=== PATIENT | female | born 1935 | race Caucasian/White ===

== ENCOUNTER 2017-02-21 14:47 | Emergency (ER) | payer MEDICARE, BC ==
[2017-02-21 15:26] LABS: Urine Bilirubin Negative (NEGATIVE); Urine Blood 25 /ul (NEGATIVE); Urine Ketone Negative (NEGATIVE); Urine Nitrite Negative (NEGATIVE); Urine Protein 15 mg/dL (NEGATIVE); Urine Specific Gravity >=1.030 SP.GR. (1.005-1.010); Urine Urobilinogen Normal (NORMAL)
[2017-02-21 15:30] LABS: Urine Appearance Clear; Urine Bacteria TRACE; Urine Color Yellow; Urine WBC None Seen /hpf (0-5)
--- NOTE | 2017-02-21 15:36 | ERNOTE ---
ER Female HPI Date of Service: 02/21/17 Stated Complaint: UTI Presenting Symptoms: pelvic pain, dysuria Time Seen by Provider: 02/21/17 15:23 Source: patient Exam Limitations: no limitations Immunizations: IMMUNIZATION HX Immunizations Up to Date Yes History of Influenza Vaccine Yes Hx Pneumococcal Vaccination Yes Allergies/Adverse Reactions: Allergies No Known Allergies Allergy (Verified 02/21/17 15:02) Home Medications: HOME MEDICATIONS Methimazole [Tapazole] 5 mg PO Q8H 09/16/14 [Last Taken 09/23/14] Meloxicam [Mobic] 15 mg PO DAILY 12/03/15 [Last Taken Unknown] Acetaminophen [Tylenol] 650 mg PO TID 02/21/17 [Last Taken Unknown] Cholecalciferol [Vitamin D] 1,000 unit PO DAILY 02/21/17 [Last Taken Unknown] Nitrofurantoin Macrocrystal [Nitrofurantoin] 100 mg PO BID #10 capsule 02/21/17 [Last Taken Unknown] - History of Present Illness Narrative: 81-year-old female presents to the emergency room for lower pelvic pain. Patient states that she has had frequency and dysuria for the last day and a half. Patient does have a history of kidney stones but she states this does not feel like a kidney stone. She states that she feels like she has a UTI. Date (Duration): 02/21/17 Timing: Present: getting worse Quality: Present: fullness Onset Location: Present: suprapubic Radiation: Present: none Activities at Onset: Present: none Prior Abdominal Problems: Present: none Sexual [place] History: Present: not active Modifying Factors - (Improves): Present: lying down Modifying Factors - (Worsens): Present: urinating Associated Symptoms: Present: dysuria, urinary frequency, polyuria. Absent: fever/chills, nausea, vomiting, low back pain, mass, nocturia Review of Systems - Review of Systems Constitutional: Present: no symptoms reported EYE: Present: no symptoms reported ENT: Present: no symptoms reported Respiratory: Present: no symptoms reported Cardiology: Present: no symptoms reported Gastrointestinal/Abdominal: Present: See HPI, constipation Genitourinary: Present: See HPI, frequency, pain, dysuria Musculoskeletal: Present: no symptoms reported Skin: Present: no symptoms reported Neurological: Present: no symptoms reported Endocrine: Present: no symptoms reported Hematologic/Lymphatic: Present: no symptoms reported Psych: Present: no symptoms reported All Other Systems: All systems neg except as marked - Patient's Past Medical History Patient History - Medical: Kidney stone Patient History - Cardiac/Respiratory: No pertinent hx Patient History - Cancer: No Hx of Cancer Patient History - Surgical Procedures: Cataracts, Hysterectomy, Total Knee Replacement, Tubal Ligation, Other Patient History - Other: None LMP (females 10-50): Menopausal - Social History Living Situations: home Abuse History: No History of abuse Psych History: No pertinent hx Smoking Status: Never smoker Alcohol Use: occasionally Drug Use: none - Immunizations Immunizations Up to Date: Yes Hx Pneumococcal Vaccination: Yes History of Influenza Vaccine: Yes Physical Exam - Physical Exam Narrative: patient denies back pain and no CVA tenderness General Appearance: Present: wd/wn, alert, no apparent distress Head Exam: Present: normal inspection, no evidence of injury Eye Exam: Normal inspection: bilateral Ears, Nose, Throat: Present: normal ENT inspection, normal pharynx Neck: Present: normal inspection, nontender, other Respiratory: Present: no respiratory distress, normal breath sounds, no accessory muscle use, chest nontender, lungs clear Cardiovascular/Chest: Present: regular rate, rhythm, no murmur, normal peripheral pulses Gastrointestinal/Abdominal: Present: normal bowel sounds, nontender, nondistended, soft, no organomegaly. Absent: tenderness, abnormal bowel sounds , distended, guarding, rebound Back Exam: Present: normal inspection, normal range of motion, no CVA tenderness , no vertebral tenderness Extremity Exam: Present: normal inspection, non-tender, normal range of motion, no edema Neurological Exam: Present: alert, oriented, normal mood/affect, no motor/ sensory deficits Skin Exam: Present: normal color, warm/dry Lymphatic Exam: Present: other - patient has a swollen salavary gland on the left side of her face. she states that she is seeing an ENT for it and has had it for a while. ED Progress - Results and Orders Patient's Lab Results:: I have reviewed the patient's lab results. Results and Orders: rbc in urine - Vital Signs Patient's Vital Signs:: I have reviewed the patient's vital signs. Vital Signs: Vital Signs 02/21/17 14:50 Temperature 36.6 C Pulse Rate 90 Respiratory 16 Rate Blood Pressure 173/71 O2 Sat by Pulse 96 Oximetry - Progress/Reassessment Chief Complaint: Urinary Tract Problems Progress:: Improved Plan - Plan Plan: patients sx correlate with the UTI. Patient will be treated as such. Departure Clinical Impression: UTI (urinary tract infection) Qualifiers: Urinary tract infection type: site unspecified Hematuria presence: with hematuria Qualified Code(s): N39.0 - Urinary tract infection, site not specified ; R31.9 - Hematuria, unspecified - Departure Disposition: Home self-care Condition: Stable Instructions: Urinary Incontinence, Urine Culture and Sensitivity Testing, Urinary Tract Infection, Adult, [id number] Additional Instructions: Continue previous home medications as directed. Follow up with her primary care provider the next 2-3 days if needed. return to the emergency room if she develops a fever or symptoms do not subside. She may take [id number] pain medication as needed for discomfort. Encourage fluids. Referrals: Ranjana Peng MD [Primary Care Provider] - Prescriptions: Nitrofurantoin Macrocrystal [Nitrofurantoin] 100 mg PO BID #10 capsule
[2017-02-21 15:46] VITALS: BP 136/75
== END 2017-02-21 15:51 | disposition home or self-care (01) ==
LOC: ER 14:47
DX: N39.0 Urinary tract infection, site not specified (principal); R31.9 Hematuria, unspecified